=== PATIENT | female | born 1980 | race Caucasian/White ===

== ENCOUNTER 2018-01-04 14:57 | Emergency (ER) | payer OTHER ==
[~2018-01-04] VITALS: Ht 170.2 cm; Wt 141.8 kg
[~2018-01-04 14:57] MED LIST: MEDROL 4MG DOSPA4 MG PO; PRINZIDE 12.5 M1 TA1 PO; TRINESSA 281 TAB; ULTRAM 50MG TAB50 MG PO; ZOLOFT 100MG100 MG PO
[2018-01-04 15:03] VITALS: BP 147/87; PULSE 98; TEMP 98
== END 2018-01-04 16:47 | disposition home or self-care (01) ==
LOC: COL.ER 14:57
DX: S06.0X0A Concussion without loss of consciousness, initial encounter (principal); I10 Essential (primary) hypertension; R40.2412 Glasgow coma scale score 13-15, at arrival to emergency department; W22.8XXA Striking against or struck by other objects, initial encounter

== ENCOUNTER → 2019-05-30 | Outpatient (CLI) | payer BC, OTHER | LOC: COL.VAS 09:00 | DX: I83.813 Varicose veins of bilateral lower extremities with pain (principal) ==